=== PATIENT | female | born 1975 | race Caucasian/White ===

== ENCOUNTER 2018-03-06 12:29 | Observation (INO) ==
--- NOTE | 2018-03-05 10:12 | MH ---
cc: Jai Patricio MD DATE OF ADMISSION: 03/06/2018 ADMITTING DIAGNOSIS: Pelvic pain with complex left adnexal mass and dysmenorrhea. HISTORY OF PRESENT ILLNESS: The patient is a 42-year-old white female, para 1-0-0-1, who returned for annual visit on 10/26/2017 reporting some intermittent pelvic pain with dysmenorrhea and menorrhagia. Her left-sided pain has increased since 09/2017, also involved the hip and left anterior leg. MRI was done, which showed a mass in the left ovary. Ultrasound from 02/01/2018 showed a 4 cm complex mass. CA-125 from 02/14/2018 was normal. Because of persistent pain and concerns about malignancy, she is now admitted for surgical evaluation. PAST MEDICAL HISTORY: She had a in 2013, a female for CPD. MEDICATIONS: Vitamins. ALLERGIES: PENICILLIN. TRANSFUSIONS: None. SOCIAL HISTORY: She is employed at [employer]. She is , same sex partner. Alcohol: Occasional. Tobacco: None. Drugs: None. FAMILY HISTORY: Noncontributory. PHYSICAL EXAMINATION: GENERAL: This is a well-nourished, well-developed white female. VITAL SIGNS: Stable. HEENT: Normal. CHEST: Clear. HEART: Regular rate. BREASTS: Symmetrical. ABDOMEN: Benign. PELVIC: Normal external genitalia and BUS. Vagina is normal. Cervix normal. Uterus is normal size, shape, anterior. Left adnexa cyst. ASSESSMENT: As above. PLAN: She is now admitted for a laparoscopy with planned LASH/BSO possible GAMALIEL/BSO. While in the office, the risks and benefits and complications were explained and accepted. Recovery and type of incision expected. Discussed the need for postoperative ERT. She would like to proceed. MD CAITLIN Wetzel/merle/major , 08:42 AM , 08:49 AM [facility]
[2018-03-06] MEDS ORDERED: Chlorhexidine Gluconate 2% 1 Pack (2 Cloths) TOPICAL ONE (13:00)
[2018-03-06] MEDS ORDERED: Metoprolol Tartrate 25 MG Tablet PO ONE (13:00)
[2018-03-06] MEDS ORDERED: Sodium Chlor 0.9% Inj 500 ML IV.CONT ONE (13:00)
[2018-03-06] MEDS ORDERED: Clindamycin 600 mg/NS Premix 600 MG/50 ML PIGGYBACK IV.SIG ONE (14:00)
[2018-03-06] MEDS ORDERED: Lidocaine PF 1% Inj 5 ML Syringe OTHER ONE (15:30)
[2018-03-06] MEDS ORDERED: Neostigmine Inj 5 MG/5 ML Syringe IV.PUSH ONE (15:30)
[2018-03-06] MEDS ORDERED: Ketorolac Inj 30 MG/ML (IVP) Vial IV.PUSH ONE (15:30)
[2018-03-06] MEDS ORDERED: Glycopyrrolate Inj 1 MG/5 ML Syringe IV.PUSH ONE (15:30)
[2018-03-06] MEDS ORDERED: Ketorolac Inj 30 MG/ML (IVP) Vial IM ONE (15:30)
[2018-03-06] MEDS ORDERED: Bupivacaine Liposomal PF 1.3% Inj 20 ML Vial ONE (16:51)
[2018-03-06] MEDS ORDERED: fentaNYL Citrate Inj 100 MCG/2 ML Ampul ONE (17:23)
[2018-03-06] MEDS ORDERED: KCL 20 mEq/D5W/NaCl 0.45% Inj 1,000 ML ONE (17:34)
[2018-03-06] MEDS: KCL 20 mEq/D5W/NaCl 0.45% Inj 1,000 ML IV.CONT SCH ×2 (17:34→23:54)
[2018-03-06] MEDS ORDERED: *Ondansetron Inj 4 MG/2 ML Vial PERIprocedural Use ONLY ONE (17:36)
--- NOTE | 2018-03-06 17:38 | MP ---
cc: Jai Patricio MD DATE OF OPERATION: 03/06/2018 DATE OF SURGERY: 03/06/2018. PREOPERATIVE DIAGNOSES: Left ovarian mass, menorrhagia, dysmenorrhea. POSTOPERATIVE DIAGNOSES: Left ovarian mass, menorrhagia, dysmenorrhea. PROCEDURE PERFORMED: LASH, BSO. ANESTHESIA: General, ET. SURGEON: Jai Patricio MD. FALL INTERN: Teresita Lemos. ESTIMATED BLOOD LOSS: 100 mL FLUIDS: About 1 liter. PROCEDURE IN DETAIL: Following induction of adequate general endotracheal anesthesia, the patient was prepped and draped supine on the operating table in dorsal lithotomy position in usual sterile fashion, with the bladder being drained by Driver catheterization. The abdomen was opened with a 3 cm curving infraumbilical incision using a knife to cut down through skin to the fascia. The fascia opened transversely, stripped from the muscles, rectus muscle split in the midline and the peritoneum opened sharply without incident. The GelPort was placed. The laparoscope was inserted. A 5 port placed in left lower quadrant and a AirSeal on the right. The uterus was about 10-12 week size. Left adnexa was cystic; about 4-5 cm, benign appearing; right ovary was slightly cystic. [place]-de-sacs were clear. Liver edge was normal. Working first on the left, Harmonic scalpel was used to take the left ovarian vessels, left round ligament, left broad ligament, left side of the bladder flap and left uterine vessels; same on the right; Harmonic scalpel was used to amputate the fundus from the cervix. Pouch inserted and used to extract the uterus, tubes, and ovaries intact. Irrigation performed. No bleeding was evident. Ureters were inspected good peristalsis. The operative sites were coated with Evicel after a low pressure test showed no bleeding. The scope was now removed. GelPort removed. Peritoneum closed with running 2-0 Vicryl, the fascia with a running locking stitch of 0-Vicryl corner to midline and tied, subcutaneous with 3-0 Vicryl and the skin with a running subcuticular 3-0 Monocryl. The scope was now reinserted to the lower ports and used to check the GelPort site which was well closed with no entrapment of tissue. The pelvis inspected. There was no bleeding. The scope was now removed, gas was allowed to escape. The ports were removed and sutured with 3-0 Monocryl. Dermabond applied. The patient's counts were correct. She will be placed supine on the table. ANESTHESIA: TAP block. MD CAITLIN Wetzel/ezequiel/major , 04:56 PM , 05:05 PM
[2018-03-06] MEDS ORDERED: Ketorolac Inj 30 MG/ML (IVP) Vial IV.PUSH SCH (18:00)
[2018-03-06] MEDS ORDERED: *morphine SULFATE 4 MG/ML PERIprocedure ONLY ONE (18:06)
[2018-03-06] MEDS ORDERED: HYDROmorphone PF Inj 2 MG/ML Vial IV.PUSH PRN (18:15)
[2018-03-06 19:01] LABS: Hematocrit 37.4 % (35.0-46.0); Hemoglobin 12.7 gm/dL (11.6-15.3); Mean Corpuscular Hemoglobin 30.9 pg (27.0-34.0); Mean Corpuscular Volume 90.9 fL (80.0-100.0); Mean Platelet Volume 9.1 fL (7.0-11.0); Platelet Count 220 th/mm3 (150-450); Red Blood Count 4.12 mil/mm3 (4.00-5.30); Red Cell Distribution Width 13.3 % (11.6-17.2); White Blood Count 10.6 th/mm3 (4.0-11.0)
[2018-03-06] MEDS: Docusate Sodium 100 MG Capsule PO SCH (20:53)
[2018-03-06] MEDS ORDERED: Zolpidem Tartrate 5 MG Tablet PO PRN (21:00)
[2018-03-06] MEDS: Ketorolac Inj 30 MG/ML (IVP) Vial IV.PUSH SCH (22:49)
[2018-03-07] MEDS: KCL 20 mEq/D5W/NaCl 0.45% Inj 1,000 ML IV.CONT SCH ×2 (01:22→10:17)
[2018-03-07] MEDS: Ketorolac Inj 30 MG/ML (IVP) Vial IV.PUSH SCH ×2 (05:02→10:16)
[2018-03-07 05:05] LABS: Baso % (Auto) 0.1 % (0.0-2.0); Hematocrit 35.6 % (35.0-46.0); Hemoglobin 12.5 gm/dL (11.6-15.3); Lymph # (Auto) 0.6 th/mm3 (1.0-4.8); Mean Corpuscular Hemoglobin 31.3 pg (27.0-34.0); Mean Corpuscular Volume 89.3 fL (80.0-100.0); Mono # (Auto) 0.5 th/mm3 (0.0-0.9); Mono % (Auto) 4.6 % (0.0-8.0); Neut # (Auto) 9.1 th/mm3 (1.8-7.7); Neut % (Auto) 89.3 % (16.0-70.0); Platelet Count 247 th/mm3 (150-450); Red Blood Count 3.99 mil/mm3 (4.00-5.30); Red Cell Distribution Width 13.1 % (11.6-17.2); White Blood Count 10.2 th/mm3 (4.0-11.0)
[2018-03-07 05:18] LABS: Calcium 8.3 mg/dL (8.5-10.1); Carbon Dioxide 25.6 meq/L (21.0-32.0); Potassium 4.2 meq/L (3.5-5.1)
[2018-03-07 08:17] VITALS: BP 106/59; PULSE 82; RESP 18; TEMP 97.6; O2SAT 96
[2018-03-07] MEDS: Docusate Sodium 100 MG Capsule PO SCH (10:16)
== END 2018-03-07 12:06 | disposition home or self-care (01) ==
LOC: HSDI 12:29 → HSDC 12:29 → N07 19:21
PROVIDERS: ADMIT Obstetrics & Gynecology; ATTEND Obstetrics & Gynecology
PROC: LAPLASH (ICD-10-PCS; 2018-03-06 15:30)